=== PATIENT | male | born 1955 | race Asian ===

== ENCOUNTER 2017-11-26 20:07 | Emergency (ER) | payer OTHER ==
[~2017-11-26] VITALS: Ht 177.8 cm; Wt 65.4 kg
[2017-11-26 20:14] VITALS: Ht 177.8 cm; Wt 65.4 kg
[2017-11-26 20:56] LABS: CALCIUM 8.9 mg/dL (8.5-10.1); CARBON DIOXIDE 26.9 mmol/L (21-32); CHLORIDE SERUM 104 mmol/L (98-107); CREATININE SERUM 1.1 mg/dL (0.7-1.3); GFR1 > 60 mL/min; GLUCOSE SERUM 138 mg/dL (74-106); POTASSIUM SERUM 3.4 mmol/L (3.5-5.1); SODIUM SERUM 144 mmol/L (136-145)
[2017-11-26 20:57] LABS: PLATELET COUNT 213 x10^3mcL (130-400); RED CELL DISTRIBUTION WIDTH 14.3 % (11.5-14.5)
[2017-11-26 21:01] LABS: ALBUMIN 4.7 g/dL (3.4-5.0); ALKALINE PHOSPHATASE 56 U/L (46-116); ALT/SGPT 26 U/L (16-63); AMYLASE 67 U/L (25-115); AST/SGOT 17 U/L (15-37); BASOPHIL % 0 % (0-2); BILIRUBIN TOTAL 0.7 mg/dL (0.20-1.00); LIPASE 118 IU/L (73-393)
[2017-11-26 21:05] LABS: TOTAL PROTEIN, SERUM 8.4 g/dL (6.4-8.2)
[2017-11-27 01:21] VITALS: BP 108/89
== END 2017-11-27 01:21 | disposition home or self-care (01) ==
LOC: ED 20:07
PROVIDERS: Emergency Medicine
DX: R10.9 Unspecified abdominal pain (principal)
CPT/HCPCS: 83880; J2270; J2405; J3490; J7030

== ENCOUNTER 2017-11-30 12:18 | Emergency (ER) | payer OTHER ==
[~2017-11-30] VITALS: Ht 177.8 cm; Wt 66.2 kg
[2017-11-30 12:24] VITALS: Ht 177.8 cm; Wt 66.2 kg
[2017-11-30 13:01] VITALS: BP 132/92
== END 2017-11-30 13:01 | disposition home or self-care (01) ==
LOC: ED 12:18
DX: R10.9 Unspecified abdominal pain (principal)